=== PATIENT | female | born 1955 | race Caucasian/White ===

== ENCOUNTER 2017-07-24 07:00 | Day surgery (SDC) | payer OTHER ==
[~2017-07-24] VITALS: Ht 154.9 cm; Wt 58.1 kg
[~2017-07-24 07:00] MED LIST: AMBIEN10 MG PO; GABAPENTIN400 MG PO; PROPRANOLOL HCL20 MG PO; SEROQUEL400 MG PO; SYNTHROID50 MCG PO; XANAX1 MG PO; XANAX2 MG PO
[2017-07-25] MEDS ORDERED: KETO10TA2 PO (12:37)
[2017-07-25] MEDS ORDERED: NUPERCAINAL56.7 GM TOP (12:37)
== END 2017-07-25 08:00 | disposition home or self-care (01) ==
LOC: CIR.AMB 07:00 → SURH 10:45 → EDSTATUS 14:30 → SURH 16:12 → O/R 16:12 → SURH 16:12 → CIR.AMB 07-25 08:00 → SURH 07-25 13:02 → O/R 07-25 13:02
DX: N81.6 Rectocele (principal); K64.8 Other hemorrhoids; N81.5 Vaginal enterocele; K59.09 Other constipation; E03.8 Other specified hypothyroidism